=== PATIENT | female | born 1985 | race Caucasian/White ===

== ENCOUNTER 2016-11-17 05:56 | Inpatient (IN) ==
[2016-11-17] MEDS ORDERED: LIDOCAINE 1% (10mg/ml) 2mL INJ PF SDV ID PRN (06:18)
[2016-11-17] MEDS ORDERED: CARBOPROST 250 MCG/ML INJECTION IM PRN (06:18)
[2016-11-17] MEDS ORDERED: CALCIUM CARBONATE Chewable 500mg TABLET PO PRN ×2 (06:18→14:29)
[2016-11-17] MEDS ORDERED: ACETAMINOPHEN 500 MG TABLET PO PRN ×2 (06:18→14:29)
[2016-11-17] MEDS ORDERED: METHYLERGONOVINE 0.2 MG/ML INJECTION IM PRN (06:18)
[2016-11-17] MEDS ORDERED: MAG-AL + SIM ORAL LIQUID 30ml PO PRN ×2 (06:18→14:29)
[2016-11-17] MEDS ORDERED: D5LR 1,000 ML IV PRN (06:21)
[2016-11-17] MEDS ORDERED: OXYTOCIN DRIP 30 UNIT/500 ML ML IV PRN (06:21)
[2016-11-17] MEDS: LR 1,000 ML IV PRN ×2 (06:53→11:22)
--- NOTE | 2016-11-17 10:22 | Anesthesia Preoperative Report ---
Anesthesia Epidural/Spinal Rec - Date and Time Date: 11/17/16 Procedure: Labor Epidural Plan: Epidural - Vital Signs Vital Signs: Temp Pulse Resp BP Pulse Ox 98.0 F 83 16 114/75 98 11/17/16 07:06 11/17/16 07:06 11/17/16 07:06 11/17/16 07:06 11/17/16 07:06 /Para: P:1 Heart Rate: 135 - Medictaions & Allergies Inpatient Medications: Current Medications Acetaminophen (Tylenol) 500 - 1,000 mg PO Q4H PRN PRN Reason: Pain Al Hydroxide/Mg Hydroxide (Maalox Plus) 30 ml PO Q3H PRN PRN Reason: Indigestion Calcium Carbonate (Tums) 500 - 1,000 mg PO Q2H PRN PRN Reason: Indigestion Carboprost Tromethamine (Hemabate) 250 mcg IM O PRN PRN Reason: .Downtime Lactated Ringer's (Lactated Ringers) 1,000 mls @ 1,000 mls/hr IV .Q1H PRN PRN Reason: as directed Last Admin: 11/17/16 06:53 Dose: 1,000 mls/hr Dextrose/Lactated Ringer's (Dextrose 5%-Lactated Ringers) 1,000 mls @ 125 mls/ hr IV .Q8H PRN PRN Reason: Labor Last Admin: 11/17/16 07:23 Dose: 125 mls/hr Oxytocin (Pitocin Drip) 30 unit in 500 mls @ 2 mls/hr IV .Q24H PRN; Protocol PRN Reason: Induction/Augmentation Last Admin: 11/17/16 07:22 Dose: 2 mls/hr Lidocaine HCl (Xylocaine-Mpf 1% Vial) 0.2 mg ID O PRN PRN Reason: IV Start Methylergonovine Maleate (Methergine) 0.2 mg IM O PRN Misoprostol (Cytotec) 800 mcg [place] ONCE PRN Allergies/Adverse Reactions: Allergies Allergy/AdvReac Type Severity Reaction Status Date / Time No Known Allergies Allergy Verified 11/17/16 08:30 - Home Medications Home Medications: Home Medications Medication Instructions Recorded Confirmed Type Loratadine [Claritin] 10 mg PO DAILY #0 09/21/12 11/17/16 History Vits W-Ca,Fe,Fa(<1MG) 1 tab PO DAILY #0 09/21/12 11/17/16 History () Levothyroxine Tab [Synthroid] 50 mcg PO ACB 11/17/16 11/17/16 History - Medical History Renal/Endocrine: Reports: Thyroid Disease (hypothyroid) - Surgical History Anesthesia Reactions: None Hx Family Anesthesia Reaction: No History of Motion Sickness: No - Social History Smoking Status: Never smoker Second Hand Exposure: No Substance Use Type: does not use Alcohol Intake Frequency: does not drink Hx Chewing Tobacco Use: No - Pertinent Findings Lab Data: CBC and BMP 11/17/16 06:46 - Physical Exam Respiratory Exam: lungs clear Cardiovascular Exam: regular rate and rhythm - Airway Assessment Mallampati Score: I TMD: 3 Fingerbreadths Overall Assessment: no airway concerns - ASA ASA Score: 2 - Discussion Discussion: Discussed risks/options/alternatives of anesthesia and questions answered. Patient consents. Nursing pain assessment noted. Anesthesia Discussion: family member Attestation Statement: Prior to the delivery of any anesthetic medication, I examined the patient, developed the plan, obtained the patient's consent and discussed the risk and benefits of the procedure with the patient/guardian.
[2016-11-17] MEDS ORDERED: BENZOCAINE 20% SPRAY 0.5 ML MM ONE (14:29)
[2016-11-17] MEDS ORDERED: DiphenhydrAMINE 25 MG CAPSULE PO PRN (14:29)
[2016-11-17] MEDS ORDERED: PHENYLEPHRINE RECTAL SUPPOSITORY PR PRN (14:29)
[2016-11-17] MEDS ORDERED: SALINE FLUSH 10ml SYRINGE IVF PRN (14:29)
[2016-11-17] MEDS ORDERED: HYDROCORTISONE 2.5% CREAM 30gm RECTALLY PRN (14:29)
[2016-11-17] MEDS ORDERED: HYDROCODONE/APAP 5mg/325mg TABLET PO PRN (14:29)
[2016-11-17] MEDS ORDERED: OXYTOCIN DRIP 30 UNIT/500 ML ML IV SCH ×2 (14:30→15:00)
--- NOTE | 2016-11-17 16:53 | Anesthesia Postoperative Note ---
- Date and Time Date: 11/17/16 Time: 16:51 - Status Patient Participated in Evaluation: Patient Participated in Person Vital Signs: Temp Pulse Resp BP Pulse Ox 98.0 F 83 16 114/75 98 11/17/16 07:06 11/17/16 07:06 11/17/16 07:06 11/17/16 07:06 11/17/16 07:06 Respiratory Function: Airway Patent, Regular Respirations Cardiovascular Function: Regular Pulse Mental Status: Alert and Oriented Pain Intensity: 0 Hydration: Taking PO Fluids Complications During Recover: None Apparent - Follow-Up Instructions Instructions: Per Surgeon
--- NOTE | 2016-11-17 20:33 | Labor and Delivery Note ---
DATE: 11/17/2016 DIAGNOSES 1. A 31-year-old white female, G3, P1, at 40.3 weeks gestational age. 2. Pitocin induction for postdates. 3. Hypothyroid. 4. Fibroid. 5. AROM. 6. Epidural anesthesia. 7. Spontaneous vaginal delivery. 8. OP rotating to OA. 9. Male infant, 3625 grams, 9/9 Apgars, 8 pounds, ([place]obbins). 10. First-degree perineal laceration--repaired. BRIEF DESCRIPTION This is a patient of mine who was brought in for an induction today for postdates. Cervix was initially 1 cm. Pitocin reached a maximum of 20 milliunits a minute and then was turned down to 10 before pushing. AROM occurred, and it was clear. She had an epidural block. When she was completely dilated, the infant was in the OP presentation. I allowed her to labor down for another half an hour to 45 minutes, and it rotated to OA. She pushed for a short period of time and had a spontaneous vaginal delivery. Infant was bulb suctioned after delivery of head and then again after delivery of the body. Cord was allowed to drain for about 2 minutes and then it was doubly clamped and cut. The infant's father cut the cord. The initially went on the mother's abdomen. Placenta delivered spontaneously and was intact. Perineum had a first-degree laceration that was repaired with 3-0 chromic. Maternal blood type is O+, rubella is immune, and GBS is negative. MTDD
[2016-11-17] MEDS: IBUPROFEN 800 MG TABLET PO PRN (20:52)
[2016-11-18] MEDS: IBUPROFEN 800 MG TABLET PO PRN (08:48)
[2016-11-18] MEDS: DOCUSATE CALCIUM 240 MG CAPSULE PO SCH (08:48)
--- NOTE | 2016-11-18 09:22 | Progress Note ---
OB PP Progress Note Free Text - Date Date: 11/18/16 - Progress Note Progress Note: vss af doing OK no c/o cont routine pp care q&a-krb
--- NOTE | 2016-11-19 07:48 | Progress Note ---
OB PP Progress Note Free Text - Date Date: 11/19/16 - Progress Note Progress Note: vss af desire dc instructions reviewed f/u 5-6 wks q&a no rx
--- NOTE | 2016-11-19 07:54 | Discharge Summary ---
Discharge Plan - Med Rec/Dispo Referrals/Follow Up: Bolivar Thomas MD [Physician] - 5-6 Weeks () Prescriptions: Continue Loratadine [Claritin] 10 mg PO DAILY #0 Vits W-Ca,Fe,Fa(<1MG) () 1 tab PO DAILY #0 Levothyroxine Tab [Synthroid] 50 mcg PO ACB - Disposition 01 Discharged Home, Self-Care
[2016-11-19] MEDS: DOCUSATE CALCIUM 240 MG CAPSULE PO SCH (09:49)
== END 2016-11-19 11:30 | disposition home or self-care (01) | DRG 775 ==
LOC: MC 05:56
PROVIDERS: ADMIT Obstetrics & Gynecology; ATTEND Obstetrics & Gynecology